=== PATIENT | female | born 1990 | race Caucasian/White ===

== ENCOUNTER 2019-07-07 06:03 | Emergency (ER) | payer OTHER ==
[2019-07-07] MEDS ORDERED: MORPHINE 10 MG/ML VIAL IVP STA (06:23)
[2019-07-07] MEDS ORDERED: ONDANSETRON 4 MG/2 ML VIAL IVP STA (06:23)
--- NOTE | 2019-07-07 06:25 | ED Physician Documentation ---
History of Present Illness - Stated complaint Stated Complaint: ABD PX/NAUSEA - Chief complaint Chief Complaint: Abd Pain - Additonal information Additional information: This is a 28-year-old female with a history of a who presents with right upper quadrant pain. Patient states she has some right upper quadrant discomfort intermittently for several years, is worse when she eats fatty foods and she has been avoiding this. Last night she began having the pain several hours after dinner and is persisted, it is moderate in severity located in the right upper quadrant, and radiates somewhat towards her back. She denies any lower abdominal pain. No fever, no chills. She is nauseated but has not vomited. Other than the she has had no abdominal surgery. Review of Systems Constitutional: denies: Fever Throat: denies: Dental pain / toothache Cardiac: denies: Chest pain / pressure GI: reports: Abdominal Pain, Nausea : denies: Dysuria Skin: denies: Rash Neurologic: denies: Generalized weakness Immunocompromised: denies: Immunocompromised PD PAST MEDICAL HISTORY - Past Medical History Past Medical History: No - Past Surgical History Past Surgical History: Yes /[employer]: section - Present Medications Home Medications: Ambulatory Orders Medication Instructions Recorded Confirmed Montelukast Sodium 10 mg PO DAILY 07/07/19 07/07/19 Ondansetron Odt [Zofran] 4 mg TL Q6H PRN #10 tablet 07/07/19 - Allergies Allergies/Adverse Reactions: Allergies Allergy/AdvReac Type Severity Reaction Status Date / Time No Known Drug Allergies Allergy Verified 07/07/19 06:10 - Social History Does the pt smoke?: No Smoking Status: Never smoker Does the pt drink ETOH?: Yes Does the pt have substance abuse?: No - Immunizations Immunizations are current?: Yes - POLST Patient has POLST: No PD ED PE NORMAL - Vitals Vital signs reviewed: Yes - General General: Alert and oriented X 3, No acute distress - HEENT HEENT: PERRL - Neck Neck: Supple, no meningeal sign - Cardiac Cardiac: RRR, No murmur - Respiratory Respiratory: Clear bilaterally - Abdomen Abdomen: Soft, Non distended, Other (Focal tenderness in the right upper quadrant. Negative Freeman sign. No lower abdominal tenderness to palpation. Well-healed incisional scar) - Derm Derm: Warm and dry - Extremities Extremities: No deformity - Neuro Neuro: Alert and oriented X 3 - Psych Psych: Normal mood, Normal affect Results - Vitals Vitals: Vital Signs - 24 hr 07/07/19 07/07/19 07/07/19 06:05 07:18 08:00 Temperature 36.4 C L Heart Rate 97 84 80 Respiratory 18 16 16 Rate Blood Pressure 133/86 H 130/81 H 115/72 O2 Saturation 100 100 100 07/07/19 07/07/19 08:30 09:00 Temperature Heart Rate 65 67 Respiratory 14 16 Rate Blood Pressure 118/75 109/73 O2 Saturation 100 98 Oxygen O2 Source Room air - Labs Labs: Laboratory Tests 07/07/19 07/07/19 07/07/19 06:30 06:30 06:30 WBC 6.7 RBC 4.49 Hgb 14.3 Hct 41.8 MCV 93.1 MCH 31.8 H MCHC 34.2 RDW 12.6 Plt Count 308 MPV 10.5 Neut # (Auto) 4.5 Lymph # (Auto) 1.4 L [place] # (Auto) 0.4 Eos # (Auto) 0.3 Baso # (Auto) 0.1 Absolute Nucleated RBC 0.00 Nucleated RBC % 0.0 Sodium 138 Potassium 4.1 Chloride 111 Carbon Dioxide 22 Anion Gap 5.0 L BUN 16 Creatinine 0.7 Estimated GFR (MDRD) 101 Glucose 105 H Calcium 8.7 Total Bilirubin 1.3 H AST 16 ALT 12 Alkaline Phosphatase 54 Total Protein 7.2 Albumin 4.3 Globulin 2.9 Albumin/Globulin Ratio 1.5 Lipase 29 Serum HCG, Qual NEGATIVE - Rads (name of study) RUQ US Radiology: Other (There is stone impacted in the neck of the gallbladder. There is some dilatation of the proximal bile duct which tapers distally. There is no pericholecystic fluid or gallbladder wall thickening.) PD MEDICAL DECISION MAKING - ED course Complexity details: considered differential (biliary colic) ED course: On arrival patient is nontoxic-appearing, vital signs are unremarkable she has focal right upper quadrant tenderness. Labs are obtained and show no leukocytos is, her bilirubin is slightly elevated at 1.3 which may be a starvation hyperbilirubinemia given she has not eaten recently. Her AST and ALT are normal as are her alk phos. Her lipase is also normal and hCG is negative. Her ultrasound shows a stone in the neck of the gallbladder, and also shows some proximal common bile duct dilatation which tapers distally. She was given a dose of morphine and Zofran and on reexamination she was still having some discomfort, I called Dr. West of surgery, and she agreed to examine the patient, however before she was able to do so the patient became pain-free and was wanting to go home. I discussed with pt that she could have a recurrence of her pain, and she is at high risk for further episodes. Given that she does have some dilatation of the proximal bile duct, cannot rule out choledocholithiasis today, although she has only very slight bilirubin elevation and no other LFT elevations, so this is questionable. Either way it would be very reasonable to be evaluated by a surgeon for potential cholecystectomy further work-up. Patient understands my concerns and at this time given that she is completely asymptomatic would like to go home and follow-up as outpatient. Her abdomen is completely soft and benign with no tenderness to deep palpation in the right upper quadrant. She understands that if she is having recurrence of her pain, or any other concerning symptoms such as recurrent vomiting, jaundice, or fever, she is to return to the emergency department immediately. Her family is present and they agree with the plan as well. I did prescribe patient some nausea medications and she was discharged home in accordance with her wishes. Departure - Departure Disposition: 01 Home, Self Care Clinical Impression: Biliary colic Condition: Good Instructions: ED Gallstone W Biliary Colic Follow-Up: Mi West MD [Provider Admit Priv/Credential] - (Call for an appointment as soon as possible) Prescriptions: Ondansetron Odt [Zofran] 4 mg TL Q6H PRN #10 tablet PRN Reason: Nausea / Vomiting Comments: You do have a stone in your gallbladder which appears to be causing your pain. I am glad you are feeling better, you will likely get a recurrence of this gallbladder attack, please call for an appointment with a general surgeon as soon as possible. Avoid fatty or rich foods to help prevent further pain, if you are having worsening abdominal pain persistent vomiting, fever or any other concerning symptoms return to the emergency department Discharge Date/Time: 07/07/19 09:25
[2019-07-07 06:48] LABS: BASOPHILS # (AUTO) 0.1 10^3/uL (0.0-0.1); BASOPHILS % (AUTO) 0.9 %; EOSINOPHILS # (AUTO) 0.3 10^3/uL (0.0-0.7); EOSINOPHILS % (AUTO) 4.5 %; HGB - HEMOGLOBIN 14.3 g/dL (12.0-16.0); LYMPHOCYTES # (AUTO) 1.4 10^3/uL (1.5-3.5); LYMPHOCYTES % (AUTO) 21.1 %; MEAN CORPUSCULAR HEMOGLOBIN 31.8 pg (27.0-31.0); MEAN CORPUSCULAR HGB CONC 34.2 g/dL (32.0-36.0); MEAN CORPUSCULAR VOLUME 93.1 fL (81.0-99.0); MEAN PLATELET VOLUME 10.5 fL (7.9-10.8); MONOCYTES # (AUTO) 0.4 10^3/uL (0.0-1.0); MONOCYTES % (AUTO) 6.5 %; NEUTROPHILS # (AUTO) 4.5 10^3/uL (1.5-6.6); NEUTROPHILS % (AUTO) 66.7 %; PLT - PLATELET COUNT 308 10^3/uL (130-450); RED BLOOD COUNT 4.49 10^6/uL (4.20-5.40); RED CELL DISTRIBUTION WIDTH 12.6 % (12.0-15.0); WHITE BLOOD COUNT 6.7 x10^3/uL (4.8-10.8)
[2019-07-07 07:02] LABS: ALBUMIN 4.3 g/dL (3.2-5.5); ALBUMIN/GLOBULIN RATIO 1.5 (1.0-2.2); BILIRUBIN,TOTAL 1.3 mg/dL (0.2-1.0); CALCIUM 8.7 mg/dL (8.5-10.3); CREATININE 0.7 mg/dL (0.4-1.0); TOTAL PROTEIN 7.2 g/dL (6.7-8.2)
[2019-07-07 07:19] LABS: HCG,QUALITATIVE BLOOD NEGATIVE
[2019-07-07] MEDS ORDERED: MORPHINE 2 MG/ML CARPUJECT IVP STA (07:26)
--- NOTE | 2019-07-07 07:33 | Ultrasound Report ---
Reason: RUQ pain, assess for GB/biliary pathology Procedure Date: 07/07/2019 Accession Number: [id number] / [id number] Procedure: US - Abdomen Limited CPT Code: Final Report FULL RESULT: EXAM: ABDOMEN ULTRASOUND LIMITED, RUQ EXAM DATE: 07/07/2019 07:08 AM. CLINICAL HISTORY: RUQ pain, assess for GB/biliary pathology. COMPARISON: None. TECHNIQUE: Real-time scanning was performed with static images obtained. FINDINGS: Liver: Normal in size echogenic. 16.6 cm. Main portal vein flow: Hepatopetal. Gallbladder: 3.2 cm gallstone lodged in the gallbladder neck No wall thickening, or sonographic Freeman's sign. Biliary System: CBD measures 10 mm. Tapers distally Other: None.. IMPRESSION: 1. 3.2 cm gallstone lodged in the gallbladder neck 2. Dilated common bile duct. RADIA
[2019-07-07 09:13] VITALS: BP 109/73
== END 2019-07-07 09:25 | disposition home or self-care (01) ==
LOC: ED 06:03
DX: K80.50 Calculus of bile duct without cholangitis or cholecystitis without obstruction (principal)
CPT/HCPCS: 36415; 76705; 80053; 83690; 84703; 85025; 96374; 96375; 96376; 99284